=== PATIENT | female | born 2000 | race Caucasian/White ===

== ENCOUNTER 2024-05-12 14:52 | Outpatient (CLI) | payer OTHER, MEDICAID, SELFPAY ==
--- NOTE | ~2024-05-12 | US_ITS ---
COMPLETE ABDOMINAL ULTRASOUND Ordering provider: Shanti RockMoira History: . Abd pain . Comparison: None. FINDINGS: LIVER: Normal size and echotexture. No focal hepatic lesions or perihepatic fluid collections are keyur ntified. Portal vein flow is normal. GALLBLADDER: Unremarkable. No evidence for stones, sludge, gallbladder wall thickening or pericholecy stic fluid collections. A negative sonographic Nance's sign was noted. BILIARY DUCTS: No evidence for intra or extrahepatic biliary dilation. Common bile duct measures 3.1 mm in diameter which is within normal limits. PANCREAS: Not visualized. SPLEEN: Normal size, echotexture and contour and measures 11.8 cm in length. KIDNEYS: Right measures 10.6x 4.2x 4.7 cm in length and the left 10.7x 4.8x 4.8 cm in length. There i s no evidence for hydronephrosis, solid renal mass, renal calculi or perinephric fluid collections. N o renal cysts. UPPER ABDOMINAL AORTA: Normal in caliber. FREE FLUID: None. IMPRESSION: 1. Unremarkable complete ultrasound of the abdomen. Reviewed, dictated and finalized at location [facility].
== END 2024-05-12 14:53 ==
LOC: MICIMG 14:53
PROVIDERS: PCP Internal Medicine Infectious Disease; Visit Provider Internal Medicine Infectious Disease
DX: R10.9 Unspecified abdominal pain (principal)
CPT/HCPCS: 76700

== ENCOUNTER 2024-07-31 15:00 | Emergency (ER) | payer OTHER, MEDICAID, SELFPAY ==
--- NOTE | ~2024-07-31 | CT_ITS ---
EXAMINATION: CT abdomen pelvis w con DATE: 07/31/2024 17:59 INDICATION: Abdominal pain TECHNIQUE: Computed tomography (CT) of the abdomen and pelvis was performed without intravenous contr ast. Automated exposure control and iterative reconstruction technique were employed. Exam dose: 445 .38 mGy-cm total exam DLP. COMPARISON: 05/12/2024 abdominal ultrasound examination FINDINGS: The lung bases are clear of infiltrate or consolidation. Normal heart size. No pericardial or pleural effusion. The liver, gallbladder, bile ducts, pancreas, pancreatic duct, spleen, adrenal glands and kidneys are unremarkable. No urinary tract calculus or hydroureteronephrosis. The urinary bladder, uterus and ad nexal areas are unremarkable. Normal caliber of the abdominal aorta. No intraperitoneal or retroperitoneal or pelvic mass lesion or adenopathy or ascites. Normal appendix. No bowel obstruction, bowel wall thickening, pneumatosis or intraperitoneal free air . Included skeletal structures are unremarkable. IMPRESSION: No significant abnormality Reviewed, dictated and finalized at [facility]. Reviewed, dictated and finalized at location [facility]. IMPRESSION: No significant abnormality
[2024-07-31 15:10] VITALS: BP 140/77; PULSE 98; RESP 18; TEMP 36.8; O2SAT 100
[2024-07-31 16:36] LABS: Add Urine Microscopic? NO; Appearance Urine Clear (Clear); Bilirubin Urine Negative (Negative); Blood Urine Negative (Negative); Color Urine Yellow (Yellow); Glucose Urine UA Negative (Negative); Ketones Urine Negative (Negative); Leukocyte Esterase Ur Negative LEU/UL (Negative); Nitrate Urine Negative (Negative); Protein Urine Negative (Negative); Specific Grav Ur 1.007 (1.001-1.035); Urobilinogen Urine 0.2 mg/dL (<2.0)
[2024-07-31 16:45] LABS: Basophils Percent Auto 0.3 % (0.2-1.2); Eosinophils Absolute Auto 0.1 K/mm3 (0-0.3); Eosinophils Percent Auto 1.5 % (0-4.4); Hematocrit 41.7 % (37.0-47.0); Hemoglobin 14.4 g/dL (12.0-15.0); Immature Granulocyte Absolute 0.02 K/mm3 (0.00-0.031); Immature Granulocyte Percent A 0.2 % (0-0.5); Lymphocytes Absolute Auto 2.02 K/mm3 (0.9-3.2); Mean Corpuscular HGB Conc 34.5 g/dl (32-36); Mean Corpuscular Hemoglobin 31.5 pg (26-34); Mean Corpuscular Volume 91.2 fl (80-100); Monocytes Absolute Auto 0.6 K/mm3 (0.1-0.6); Monocytes Percent Auto 6.5 % (2.6-8.5); Neutrophils Absolute Auto 6.4 K/mm3 (1.3-6.7); Neutrophils Percent Auto 69.5 % (45.5-73.1); Platelet Count Result 354 k/mm3 (150-375); Red Blood Count 4.57 M/mm3 (4.2-5.4); Red Cell Distribution Width 12.6 % (11.5-14.5); White Blood Count 9.2 K/mm3 (4.5-10.0)
--- NOTE | 2024-07-31 16:54 | ED.ABDPAIN ---
HPI - Abdominal Pain General Chief Complaint: Abdominal Pain Stated Complaint: Abd Issues 3-4 Months Time Seen by Provider: 07/31/24 16:25 History of Present Illness HPI narrative: Patient is a 24-year-old female who presents to the emergency department this afternoon complaining of left-sided abdominal pain. Patient states that she has been having this issue for the past 4 months and has seen multiple physicians including a GI doctor at [facility]. Patient had a colonoscopy performed which was negative. She was placed on a liquid diet for a few days and they were considering doing an upper endoscopy. Patient has had an abdominal ultrasound but has not had any CT scan of her abdomen since her symptoms started. Patient states that the liquid diet did not improve her. She states that within the past few days she noticed that the pain is worsening and currently rates the pain a 5/10 on the pain scale. Admits to mild nausea and vomiting and diarrhea associated with the pain. Denies any family history of inflammatory bowel disease. Denies any marijuana use. Denies any urinary symptoms including dysuria or hematuria. No additional symptoms or concerns at this time. Related Data Allergies Allergy/AdvReac Type Severity Reaction Status Date / Time No Known Allergies Allergy Verified 07/31/24 15:13 Review of Systems Review of Systems: All systems are reviewed and are negative unless stated otherwise in the HPI. Exam Narrative: General: Alert, awake, afebrile, in no acute distress. HEENT: PERRL, no rhinorrhea, no post nasal drip, oropharynx clear. Cardiovascular: Regular rate and rhythm, no murmurs, rubs or gallops, no peripheral edema. Respiratory: Clear to auscultation bilaterally, no tachypnea, no wheezing, no rhonchi, no rubs, no respiratory distress. Abdomen: Soft, nontender, nondistended, no rebound, no guarding, no peritoneal signs. Musculoskeletal: No joint swelling or deformity, normal muscle tone. Skin: No rashes or petechia, no signs of infection. Neurological: Alert and oriented to person, place, and time. Follows all commands. No focal deficits, speech is clear and fluent. Course Vital Signs Vital signs: Vital Signs Temperature 98.3 F 07/31/24 15:10 Pulse Rate 98 07/31/24 15:10 Respiratory Rate 18 07/31/24 15:10 Blood Pressure 140/77 07/31/24 15:10 Pulse Oximetry 100 07/31/24 15:10 Oxygen Delivery Room Air 07/31/24 15:10 Temperature 98.3 F 07/31/24 15:10 Pulse Rate 98 07/31/24 15:10 Respiratory Rate 18 07/31/24 15:10 Blood Pressure 140/77 07/31/24 15:10 Pulse Oximetry 100 07/31/24 15:10 Oxygen Delivery Room Air 07/31/24 15:10 MDM - Abdominal Pain MDM Narrative Medical decision making narrative: The patient was evaluated by myself in the emergency department. History is obtained from patient who is an independent historian and physical exam was performed. External medical records were reviewed at this time. IV was established and pertinent tests were ordered. Laboratory results obtained revealing no acute process. Imaging studies obtained included CT abdomen and pelvis with IV contrast which was independently interpreted by me revealing no acute process, which is pending final radiology interpretation. Patient was provided with a printout of her CT report. Differential diagnosis considerations include inflammatory bowel disease, gastritis, appendicitis, cholecystitis, pancreatitis. Comorbidities impacting this visit include I have evaluated and discussed social determinants of health with the patient that could potentially impact subsequent diagnosis and treatment plans. On repeat assessment of the patient, reevaluation revealed that the patient is doing well and is in no acute distress. Patient symptoms have remained stable since she arrived to our emergency department. Repeat vital signs were all reviewed and noted to be stable. Differential
[2024-07-31 16:55] LABS: Alanine Aminotransferase 16 U/L (6-35); Alkaline Phosphatase 80 U/L (38-126); Anion Gap 13 mmol/L (4-12); Aspartate Amino Transferase 21 U/L (14-36); Bilirubin,Total 0.6 mg/dL (0.2-1.3); Blood Urea Nitrogen 5 mg/dL (7-17); Calcium 9.7 mg/dL (8.4-10.2); Carbon Dioxide 25 mmol/L (22-30); Chloride 100 mmol/L (98-107); Estimated CRCL calculation 132 ml/min; Estimated Glomerular Filt Rate > 60; Glucose 96 mg/dL (65-110); Magnesium 1.9 mg/dL (1.6-2.3); Potassium 3.9 mmol/L (3.4-5.0); Sodium 138 mmol/L (137-145)
[2024-07-31 17:24] LABS: SPREG INTERNAL CONTROL Positive; Serum Qual hCG Negative
[2024-07-31 19:26] VITALS: BP 137/80; PULSE 79; RESP 16; TEMP 36.6; O2SAT 98
== END 2024-07-31 19:28 | disposition home or self-care (01) ==
PROVIDERS: Emergency Provider Emergency Medicine; PCP Internal Medicine Infectious Disease
DX: R10.9 Unspecified abdominal pain (principal)
CPT/HCPCS: 36415; 74177; 80053; 81003; 83735; 84703; 85025; 99284; Q9967

== ENCOUNTER 2024-08-10 14:28 | Outpatient (CLI) | payer OTHER, MEDICAID, SELFPAY ==
[2024-08-12 14:54] LABS: H pylori, Urea Breath DETECTED (NOT DETECTED)
== END 2024-08-10 14:29 | disposition home or self-care (01) ==
LOC: ANHLAB 14:31
PROVIDERS: PCP Internal Medicine Infectious Disease; Visit Provider Internal Medicine Gastroenterology
DX: R10.13 Epigastric pain (principal)
CPT/HCPCS: 83013